=== PATIENT | male | born 1975 | race Caucasian/White ===

== ENCOUNTER 2020-10-20 15:19 | Emergency (ER) | payer OTHER ==
[2020-10-20 15:52] LABS: BASOPHIL 0.8 % (0-2); EOSINOPHIL 2.3 % (0-5); HGB 14.3 g/dl (13.2-18.0); LYMPHOCYTE 18.4 % (15-48); MCH 26.2 pg (25.0-31.0); MCHC 33.3 g/dL (32.0-36.0); MCV 78.9 fL (78.0-100.0); MONOCYTE 9.4 % (0-12); MPV 10.1 fL (6.0-9.5); NEUTROPHIL 68.6 % (41-80); NRBC 0; PLT 343 K/uL (150-400); RBC 5.45 M/uL (4.70-6.00); RDW 15.1 % (11.5-14.0); WBC 10.6 K/uL (4.0-10.5)
[2020-10-20 16:04] LABS: INR 0.98 (0.9-1.2); PROTHROMBIN TIME 12.4 SECONDS (11.8-13.4); PTT 31.4 SECONDS (24.4-34.7)
[2020-10-20 16:11] LABS: ALBUMIN 3.8 g/dL (3.4-5.0); BILIRUBIN - TOTAL 0.3 mg/dL (0.2-1.0); BUN/CREAT RATIO (CALC) 14.5 RATIO; CREATININE 0.76 mg/dL (0.67-1.17); GLOBULIN (CALCULATION) 4.3 g/dL; POTASSIUM 4.1 mmol/L (3.5-5.1); TOTAL PROTEIN 8.1 g/dL (6.4-8.2)
[2020-10-20 16:34] LABS: CKMB 1.7 ng/mL (0.0-3.6)
== END 2020-10-20 16:48 | disposition other institution (70) ==
LOC: FER 15:19
PROVIDERS: Emergency Medicine
DX: I67.82 Cerebral ischemia (principal); R20.2 Paresthesia of skin; I10 Essential (primary) hypertension; R29.700 NIHSS score 0; F17.210 Nicotine dependence, cigarettes, uncomplicated
CPT/HCPCS: 36415; 70450; 71045; 80053; 80061; 82550; 82553; 83874; 84484; 85025; 85610; 85730; 93005; J3490

== ENCOUNTER 2021-11-15 11:56 | Emergency (ER) | payer OTHER ==
[2021-11-15 12:53] LABS: BASOPHIL 0.7 % (0-2); HCT 41.5 % (42.0-52.0); HGB 14.3 g/dl (13.2-18.0); LYMPHOCYTE 22.4 % (15-48); MCH 28.9 pg (25.0-31.0); MCHC 34.5 g/dL (32.0-36.0); MPV 10.1 fL (6.0-9.5); NEUTROPHIL 63.3 % (41-80); NRBC 0; PLT 319 K/uL (150-400); RBC 4.94 M/uL (4.70-6.00); RDW 14.6 % (11.5-14.0); WBC 10.7 K/uL (4.0-10.5)
[2021-11-15 13:14] LABS: BILIRUBIN NEGATIVE (NEGATIVE); BLOOD NEGATIVE Ery/uL (NEGATIVE); CLARITY CLEAR (CLEAR); COLOR YELLOW (YELLOW); GLUCOSE (U) NORMAL (NORMAL); LEUKOCYTES NEGATIVE Leu/uL (NEGATIVE); NITRITE NEGATIVE (NEGATIVE); PROTEIN NEGATIVE (NEGATIVE); UROBILINOGEN 0.2 mg/dL (0.2-1.0)
[2021-11-15 13:37] LABS: BILIRUBIN - TOTAL 0.5 mg/dL (0.2-1.0); CREATININE 1.2 mg/dL (0.67-1.17); GLOBULIN (CALCULATION) 3.9 g/dL; POTASSIUM 4.3 mmol/L (3.5-5.1); TOTAL PROTEIN 7.9 g/dL (6.4-8.2)
[2021-11-15] MEDS ORDERED: ZOVIRAX800 MG PO (14:21)
[2021-11-15] MEDS ORDERED: NORCO 5/3251 EACH PO (14:21)
[2021-11-15] MEDS ORDERED: BACTRIM DS TAB1 EACH PO (14:21)
[2021-11-15] MEDS ORDERED: CEPHALEXIN500 MG PO (14:21)
== END 2021-11-15 14:50 | disposition home or self-care (01) ==
LOC: FER 11:56
PROVIDERS: Nurse Practitioner Family
DX: B02.9 Zoster without complications (principal); N45.4 Abscess of epididymis or testis; R10.84 Generalized abdominal pain; R11.0 Nausea; I10 Essential (primary) hypertension; K21.9 Gastro-esophageal reflux disease without esophagitis; E78.5 Hyperlipidemia, unspecified; F17.210 Nicotine dependence, cigarettes, uncomplicated; Z28.310 Unvaccinated for COVID-19; Z88.5 Allergy status to narcotic agent; Z91.018 Allergy to other foods; Z91.041 Radiographic dye allergy status; Z79.899 Other long term (current) drug therapy
CPT/HCPCS: 36415; 80053; 81003; 82150; 83690; 85025; J1885; J2405; J7030